=== PATIENT | female | born 1970 | race Caucasian/White ===

== ENCOUNTER 2018-03-02 13:23 | Observation (INO) | payer MEDICARE, MEDICAID, SELFPAY ==
[2018-03-02] VITALS (14 sets, daily range): BP systolic 110–160; BP diastolic 52–100; PULSE 90–123; RESP 9–32; TEMP 36.8–37.1; O2SAT 96–100; BMI 29.9
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
--- NOTE | 2018-03-02 13:56 | DI.US.S_ITS ---
PROCEDURE: US ABDOMEN COMPLETE INDICATIONS: RUQ, EVAL FOR GB PATHOLOGY TECHNIQUE: Real-time scanning was performed of the abdominal and retroperitoneal organs, with image documentation. COMPARISON: [facility], CT, KIDNEY/ URETER/BLADDER, 05/13/2016, 16:03. [facility], US, ABDOMEN COMPLETE, 04/21/2015, 17:30. FINDINGS: Liver: The liver is enlarged with steatosis. Gallbladder: Gallbladder is unremarkable. No wall thickening or visualized stones. Biliary ducts: Intrahepatic bile ducts are non-dilated. Extrahepatic bile duct caliber measures 9.3 mm. Normal is 6-7 mm or less in diameter, or 10 mm or less post-cholecystectomy. Pancreas: Visualized portions of the pancreas are sonographically normal. Spleen: Spleen is normal in size and homogeneous in echotexture. Kidneys: Kidneys are normal in size and echotexture. Right kidney measures 11.1 cm long; left kidney measures approximately 9.9 cm long. However, the left kidney is partially obscured. No hydronephrosis or nephrolithiasis. No solid masses. Aorta: Visualized aorta is normal in caliber at less than 3 cm. Iliacs: Proximal common iliac arteries are not well seen. IVC: Intrahepatic inferior vena cava is not visualized. Miscellaneous: No free abdominal fluid. IMPRESSION: 1. Hepatomegaly with steatosis. 2. Gallbladder is unremarkable. 3. Mild prominence of the common bile duct without intrahepatic biliary dilation. Attention to this region on CT is recommended. Dictated by: Jaquelin Sanchez M.D. on 03/02/2018 at 15:39 Approved by: Jaquelin Sanchez M.D. on 03/02/2018 at 15:42
[2018-03-02 14:17] LABS: Add Manual Diff / Slide Review NO; Basophils Percent Auto 0.4 % (0-2); Eosinophils Percent Auto 0.7 % (2-4); Hematocrit 43.2 % (36-46); Hemoglobin 14.9 g/dL (12.0-16.0); Lymphocytes Percent Auto 31.2 % (25-40); Mean Corpuscular HGB Conc 34.4 % (30-36); Mean Corpuscular Hemoglobin 32.5 PG (26-34); Mean Corpuscular Volume 94.4 fL (80-100); Monocytes Percent Auto 6.7 % (3-14); Neutrophils Absolute Auto 4200 /uL (3000-5900); Platelet Count 282 X10^3/uL (150-400); Red Blood Cell Count 4.58 X10^6/uL (4.0-5.2); Red Cell Distribution Width 12.6 % (11.6-14.8); White Blood Cell Count 6.8 X10^3/uL (4.5-11.0)
[2018-03-02 14:32] LABS: Alanine Aminotransferase 32 IU/L (9-52); Albumin 4.9 g/dL (3.5-5.0); Albumin Globulin Ratio 1.6 (1.0-2.8); Alkaline Phosphatase 64 U/L (38-126); Aspartate Aminotransferase 32 IU/L (14-36); BUN Creatinine Ratio 31.7 (6-22); Bilirubin Total 0.5 mg/dL (0.2-1.3); Blood Urea Nitrogen 19 mg/dL (7-17); Calcium 9.7 mg/dL (8.4-10.2); Carbon Dioxide 25 mmol/L (22-32); Chloride 102 mmol/L (98-107); Estimated Glomerular Filt Rate > 60.0 mL/min (>60); Globulin 3.1 g/dL (1.7-4.1); Glucose 99 mg/dL (70-100); HEMOLYSIS 19 (0-50); Lipase 48 U/L (23-300); Potassium 4.4 mmol/L (3.4-5.1); Sodium 143 mmol/L (137-145)
[2018-03-02] MEDS: ONDANSETRON 4 MG/2 ML INJ IV ×3 (14:32→21:08)
--- NOTE | 2018-03-02 14:41 | DI.CT.S_ITS ---
PROCEDURE: CT ABDOMEN PELVIS W CON INDICATIONS: upper ABD pain TECHNIQUE: After the administration of intravenous contrast, 5 mm thick sections acquired from the diaphragm to the symphysis. 5 mm coronal and sagittal reformats were acquired. For radiation dose reduction, the following was used: automated exposure control, adjustment of mA and/or kV according to patient size. COMPARISON: [facility], CT, ABDOMEN/PELVIS WITH CONTRAST, 09/29/2014, 19:45. FINDINGS: Image quality: Excellent. ABDOMEN: Lung bases: Lung bases are clear. Heart size is normal. Solid organs: Liver is normal in size and enhancement. Gallbladder is unremarkable. No intrahepatic biliary ductal dilatation. Extrahepatic biliary ducts measure mildly dilated, but are unchanged from prior comparison exam of 09/29/14. Pancreas enhances normally. Spleen is normal in size and enhancement. No adrenal nodules. Kidneys demonstrate normal size and enhancement, without hydronephrosis. Peritoneum and bowel: Bowel loops demonstrate normal wall thickness and caliber. No free fluid or air. Postsurgical changes suggestive of prior appendectomy. No right lower quadrant inflammatory findings to suggest acute appendicitis. Nodes and vessels: No retroperitoneal or mesenteric adenopathy by size criteria. Aorta and inferior vena cava are normal in size. There is mild calcified and noncalcified plaque of the abdominal aorta and branch vessels. Miscellaneous: No ventral hernias. PELVIS: Genitourinary: The bladder is decompressed, precluding full evaluation of the bladder wall. Miscellaneous: There is a 2.9 cm left adnexal cyst/follicle. Multiple subcentimeter hypoattenuating foci within the uterus are most consistent with uterine leiomyomas, and were partially seen on comparison exam of 09/29/14. Bones: No suspicious bony lesions. No vertebral body compression fractures. IMPRESSION: #1. No acute infectious or inflammatory findings within the imaged abdomen and pelvis. #2. Stable enlarged extrahepatic biliary ducts. Correlation with clinical laboratory findings suggested. #3. Hypoattenuating subcentimeter foci within the uterus are most consistent with leiomyomas; consider followup pelvic ultrasound if there is continued clinical concern. Dictated by: Kevin Preciado M.D. on 03/02/2018 at 15:56 Approved by: Kevin Preciado M.D. on 03/02/2018 at 16:09
[2018-03-02] MEDS: methylPREDNISolone 125 MG/2 ML VIAL 40 MG IV (14:51)
[2018-03-02] MEDS: diphenhydrAMINE 50 MG/ML VIAL IV ×2 (14:52→21:45)
[2018-03-02] MEDS: MORPHINE 4 MG/ML INJ IV ×2 (14:52→19:57)
[2018-03-02] MEDS: SODIUM CHLORIDE 0.9% 1,000 ML 1000 ML IV (14:52)
[2018-03-02 15:40] LABS: Appearance Urine UA CLOUDY; Bilirubin Urine UA NEGATIVE (NEGATIVE); Glucose Urine UA NEGATIVE (Normal); Ketones Urine UA NEGATIVE (NEGATIVE); Leukocyte Esterase Urine UA TRACE (NEGATIVE); Nitrite Urine UA Negative (Negative); Occult Blood Urine UA 3+ (Negative); Protein Urine UA 1+ (Negative); Specific Gravity Urine UA 1.025 (1.000-1.035); Urobilinogen Urine UA 0.2 E.U./dL (0.2)
[2018-03-02] MEDS: EPINEPHrine 1 MG/ML AMPUL 0.3 MG IM (15:49)
[2018-03-02] MEDS: methylPREDNISolone 125 MG/2 ML VIAL IV (15:49)
--- NOTE | 2018-03-02 15:49 | PC.NURSE ---
pt brought back from CT after having allergic reaction to Iodine contrast. Pt was premedicated per provider prior to Ct scan. Provider at bedside pt c/o itching, scratching throat, coughing.
[2018-03-02 16:13] LABS: Amorphous Sediment Urine 1+; Bacteria Urine Moderate (10-30); Culture Indicated Urine Specimen Cultured; RBC Urine 30-100/HPF (0-5/HPF); Squamous Epithelial Cell Urine 5-10 /HPF; WBC Urine 5-10/HPF (0-5/HPF)
[2018-03-02] MEDS: LORazepam 2 MG/ML SYRINGE 1 MG IV (16:49)
[2018-03-02] MEDS: HYDROCODONE/ACET 5/325 TABLET 1 TAB PO (17:53)
[2018-03-02] MEDS: SODIUM CHLORIDE 0.9% 1,000 ML 150 ML IV ×2 (18:30→23:39)
[2018-03-02] MEDS: MORPHINE 2 MG/ML INJ IV (21:09)
[2018-03-02] MEDS: LORazepam 2 MG/ML SYRINGE 0.5 MG IV (23:38)
[2018-03-03] VITALS (10 sets, daily range): BP systolic 103–150; BP diastolic 53–84; PULSE 78–125; RESP 12–20; TEMP 36.4–37.1; O2SAT 96–100
--- NOTE | 2018-03-03 | DI.MRI.S_ITS ---
PROCEDURE: MR ABDOMEN WO CON INDICATIONS: MRCP. Dilated bile duct TECHNIQUE: Coronal HASTE through the abdomen, axial 2-D FLASH in- and [id number], and breath-hold T2 FSE with fat saturation through the biliary system and pancreas. Oblique coronal and axial thin-slice HASTE, radial thick-slab HASTE centered on the extrahepatic bile ducts. COMPARISON: [facility], CT, ABDOMEN/PELVIS WITH CONTRAST, 09/29/2014, 19:45. [facility], CT, KIDNEY/ URETER/BLADDER, 05/13/2016, 16:03. [facility], CT, CT ABDOMEN PELVIS W CON, 03/02/2018, 15:17. FINDINGS: Image quality: There is motion artifact slightly limiting evaluation. Pancreas and biliary system: There is minimal central intrahepatic biliary duct dilatation as well as mild dilatation of the extrahepatic ducts redemonstrated. The common bile duct measures up to approximately 11 mm with gradual tapering distally into the ampulla. No filling defects in the common duct to suggest choledocholithiasis. Pancreatic duct is normal in caliber. No peripancreatic edema or fluid collections. Other solid organs: No focal hepatic lesions identified. Spleen is normal in size. No adrenal nodules. Both kidneys are normal in size, without hydronephrosis. Nodes and vessels: No retroperitoneal or mesenteric adenopathy by size criteria. Aorta and inferior vena cava are normal in size. Bowel and peritoneum: Visualized bowel loops are normal in caliber. No free fluid. Lung bases: No basal pleural effusions. Heart size is normal. Bones and soft tissues: No ventral hernias. Bone marrow is of normal overall signal. IMPRESSION: 1. Mild biliary ductal dilatation redemonstrated without filling defects to suggest choledochalithiasis. No definite mass lesion. Findings may reflect ampullary stenosis. Recommend correlation with laboratory values. Dictated by: Bennett Tinoco M.D. on 03/03/2018 at 15:48 Approved by: Bennett Tinoco M.D. on 03/03/2018 at 16:09
[2018-03-03] MEDS: LEVALBUTEROL 0.63 MG/3 ML NEB INH (00:57)
[2018-03-03] MEDS: MORPHINE 2 MG/ML INJ IV ×8 (01:52→22:24)
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
[2018-03-03] MEDS: SODIUM CHLORIDE 0.9% 1,000 ML 150 ML IV ×2 (05:44→12:41)
[2018-03-03] MEDS: ONDANSETRON 4 MG/2 ML INJ IV ×2 (05:49→10:23)
[2018-03-03] MEDS: LORazepam 2 MG/ML SYRINGE 0.5 MG IV (08:35)
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
--- NOTE | 2018-03-03 09:37 | PC.NURSE ---
Visitor-- Patient stated that visitor Doni Michael was okay to visit patient. Mr. Michael is the deacon of patient's rastafari.
[2018-03-03] MEDS: ALPRAZolam 0.25 MG TABLET 0.5 MG PO (14:37)
--- NOTE | 2018-03-03 14:57 | PC.NURSE ---
MRI/Day Shift Note: Patient to MRI via wheelchair at 1455. Patient saline locked and heart monitor and stickers removed from patient's chest. Patient pre-medicated with xanax per orders. Patient starting to feel better and had asked for soup which she was able to take in a keep down. Patient wanting to restart her home medications and Dr. Monaco made aware with orders received. Patient's deacon from her jew Doni Michael at her bedside today with permission from the patient. Lyric in care management spoke with patient at length this shift and has been working with/for the patient setting up post-admission needs/care. No acute distress at this time. Will continue to monitor.
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
[2018-03-03] MEDS: HYDROCODONE/ACET 10/325 TABLET 1 TAB PO (16:44)
[2018-03-03] MEDS: SCOPOLAMINE 1 PATCH TOP (16:45)
[2018-03-03] MEDS: diphenhydrAMINE 50 MG/ML VIAL IV (23:44)
[2018-03-03] MEDS: PROPAFENONE 150 MG TABLET 225 MG PO (23:52)
[2018-03-03] MEDS: NEBIVOLOL 2.5 MG TABLET 5 MG PO (23:52)
[2018-03-03] MEDS: PANTOPRAZOLE 40 MG TABLET PO (23:52)
[2018-03-03] MEDS: NEBIVOLOL 2.5 MG TABLET PO (23:52)
[2018-03-04] MEDS: MORPHINE 2 MG/ML INJ IV ×3 (00:40→05:43)
--- NOTE | 2018-03-04 04:03 | PC.NURSE ---
NOC patient c/o of 5/10 pain for most of shift. Morphine 2mg, IV, administered Q2 PRN and is able to decrease pain to a 3/10. Heating packs and warm blankets to abdomen. Midline infusing NS at 150/hr, occasional distal occlusions due to placement. Mild anxiety. Tele NSR. Denying nausea, reporting dark, concentrated urine.
[2018-03-04 05:00] VITALS: BP 108/53; PULSE 52; RESP 16; TEMP 36.2; O2SAT 97
[2018-03-04] MEDS: SODIUM CHLORIDE 0.9% 1,000 ML 150 ML IV (05:32)
[2018-03-04] MEDS: ONDANSETRON 4 MG/2 ML INJ IV (05:36)
[2018-03-04 08:00] VITALS: BP 105/64; PULSE 59; RESP 16; TEMP 36.3; O2SAT 97
[2018-03-04 08:36] VITALS: O2SAT 97
[2018-03-04] MEDS: LEVALBUTEROL 0.63 MG/3 ML NEB INH (08:55)
[2018-03-04] MEDS: OXYCODONE/ACETAMINOPHEN 5/325 TABLET 1 TAB PO (09:20)
[2018-03-04] MEDS: POTASSIUM CHLORIDE 10 MEQ TAB 20 MEQ PO (09:22)
[2018-03-04 09:55] VITALS: O2SAT 98
--- NOTE | 2018-03-04 11:15 | PT.IPTN ---
Physical Therapy Treatment Note M2 PT-IP Current Condition Start: 03/03/18 17:34 Freq: NEEDED Status: Active Protocol: Document 03/04/18 11:15 RCC (Rec: 03/04/18 12:03 RCC [email or web address]) Physical Therapy Current Condition Current Condition Evaluation Date 03/03/18 Treatment Diagnosis abdominal pain, dehydration; difficulty in walking Onset Date 03/02/18 Precautions Other Precautions falls M3 PT-IP Subjective Start: 03/03/18 17:34 Freq: NEEDED Status: Active Protocol: Document 03/04/18 11:15 RCC (Rec: 03/04/18 12:03 RCC [email or web address]) Subjective Physical Therapy Visit Type Type Treatment Note Visit Start Time 11:00 Visit Stop Time 11:15 Total Visit Minutes 15 Number of VP PUBLIC RELATIONS Visits 0 Physical Therapy Visit Comments Patient Comments pt wants to go home today, states she only has a SPC at home. [employer] members to assist her at home. M4 PT-IP Mobility and Gait Start: 03/03/18 17:34 Freq: NEEDED Status: Active Protocol: Document 03/04/18 11:15 RCC (Rec: 03/04/18 12:03 RCC [email or web address]) PT-Bed Mobility Assessment Supine to Sit Supine to Sit Independent Sit to Supine Sit to Supine Independent Scooting Scooting to Edge of Bed Independent PT-Transfer Assessment Sit to and From Stand Sit to and from Stand Standby Assistance Equipment Transfer Assistive Device Gait Belt Front Wheeled Walker Transfers Transfer Destination Bed Transfer Technique Stand Step Pivot Transfer Ability Level of Assist Contact Guard Assistance Comments Mobility Comments tremors bilaterally, LE > UE. RLE occasional foot drag due to pain and tremor. Gait Assessment Gait Gait Assistance Required: Contact Guard Assist Distance (Feet) 50 Assistive Devices Assistive Device Gait Belt Front Wheeled Walker Gait Deviations General Gait Pattern Ataxic Decreased Stride Length Decreased Feet Clearance Factors Limiting Gait Function Factors Limiting Gait Function Decreased Activity Tolerance Decreased Sensation Decreased Strength Incoordination Pain Comments Gait Comments RLE occasional dragging of the toes and foot, causing retraction of the pelvis on the R. Functional Assessments Functional Tests Timed Up and Go 44 seconds with FWW (high fall risk) M5 PT-IP Objective Assessments Start: 03/03/18 17:34 Freq: NEEDED Status: Active Protocol: Document 03/03/18 16:24 AB (Rec: 03/03/18 17:48 AB [email or web address]) Orientation Orientation/Cognition Level of Alertness Alert Orientation Name Age Birthday Month Date Year Day of Week Place Situation Safety Awareness Understands Safety Issues Gross Range of Motion Lower Extremity ROM Assessment Within Functional Limits Strength Lower Extremity Strength Assessment Within Functional Limits Sensation Assessment Sensation Gross Sensation Right LE Impaired Left LE Impaired Sensation Description Tingling Comments Sensation Comments stated that she has peripheral neuropathy M6 PT-IP Treatment Start: 03/03/18 17:34 Freq: NEEDED Status: Active Protocol: Document 03/03/18 16:24 AB (Rec: 03/03/18 17:48 AB [email or web address]) Physical Therapy Treatment Education Education Provided Safety M7 PT-IP Assessment and Plan Start: 03/03/18 17:34 Freq: NEEDED Status: Active Protocol: Document 03/04/18 11:15 RCC (Rec: 03/04/18 12:03 RCC [email or web address]) PT Summary Assessment and Plan Summary Impairments Pain Strength Balance Gait Activity Tolerance Assessment Summary Pt with significant tremors in the LEs, limiting her ability to ambulate safely without increased support. She was able to ambulate with a FWW and CGA household distances. She normally does not use an assistive device, occasionally only a cane. However, her Timed Up and Go score is 44 seconds, which indicates she is a high fall risk. Pt would likely decrease fall prevalence with the use of a FWW for extra support. Pt is motivated to return home, will need a FWW prior to d/c and assistance at home. She does not want home health services. Goals Bed Mobility Goal Independent Transfer Goal Independent Front Wheeled Walker Gait Goal Standby Assistance Front Wheel Walker Gait Distance 50 Other Goals up/down 1 step SBA Short term goals: increase bed mobility and transfers to independent and ambulation to SBA using FWW ~ 50 ft halfway goal: increas ambulation to mod I using FWW ~ 100 ft. Days to Meet Goals 3 Frequency of Treatment Frequency Of Treatment Once a Day Treatment Plan Other Recommendations and Next Treatment gait with FWW, progress Focus standing tolerance Recommendations To Nursing Amount of Assist Needed 1 Person Assist Discharge Recommendations PT Discharge Recommendations Home with Assistance Equipment Needed for Home Before needs FWW Discharge
[2018-03-04 12:00] VITALS: BP 109/57; PULSE 61; RESP 16; TEMP 36.2; O2SAT 96
[2018-03-04] MEDS: PANTOPRAZOLE 40 MG TABLET PO (12:04)
[2018-03-04] MEDS: FUROSEMIDE 20 MG TABLET PO (12:04)
[2018-03-04] MEDS: NEBIVOLOL 2.5 MG TABLET PO (12:05)
[2018-03-04] MEDS: PROPAFENONE 150 MG TABLET 225 MG PO (12:06)
[2018-03-04] MEDS: NEBIVOLOL 2.5 MG TABLET 5 MG PO (12:06)
[2018-03-04 15:49] VITALS: BP 92/49; PULSE 52; RESP 20; TEMP 36.7; O2SAT 98
[2018-03-04] MEDS: INFLUENZA VACCINE 0.5 ML SYRINGE IM (16:54)
--- NOTE | 2018-03-04 17:43 | PM.DS.1 ---
History of Present Illness Chief complaint: Multiple Complaints Narrative: Abdominal pain Patient presented to [facility] Emergency room yesterday afternoon with multiple complaints. Primarily having abdominal pain nausea and vomiting. She has had nausea involving for about the last 4 days unable it to keep in her upper normal pills down. Additionally she has had several loose stools of that with some rectal urgency. No apparent fevers or chills. Pain is in the right flank that she has had in the past. Has seemed to radiate around her mid abdomen. Additionally has been having lower abdominal pain. The nausea has persisted she has had this nausea intermittently in the past but this has been more persistent than normal. The stool changes has been intermittent also. She denies any melena or hematochezia She has history of kidney stones. Last seen by urologist couple years ago and was found to have small kidney stone none of which were of any significance. Additionally chart shows she has had several urinalyses with significant hematuria that presumably has been related to her kidney stones in the past. She also has had a couple of documented urinary tract infections based on the urine cultures most of which have been negative. She currently lives in apartment by herself. She had been living in a ?safe else?. She has an apparent restraining order against her former . Additionally has been from her children live in [place] and from the rest of her family because of the social issues that she is having with ex-. She has seen a psychiatrist in the past for traumatic head injury and posttraumatic stress syndrome. She has not seen a counselor recently. Last seen by Dr. silvia mcdaniel is been her primary care physician last November and had to stated getting reassigned position in [facility] she had to be determined. She has apparently refused to see physicians in [facility] due to the relationship with her aunt who is Dr. bledsoe on and a complex that apparently have been present in the past due to the social issues Discharge Providers Date of admission: 03/02/18 19:09 Primary care physician: Sirisha Fischer MD Consults: 03/02/18 18:57 Consult to Physician Routine Comment: Consulting Provider: Charles Monaco Reason for consultation: Admission Has provider been notified: Yes 03/02/18 21:52 Consult to Respiratory Therapy Evaluate & Treat Comment: Physician Instructions: Evaluate and treat 03/03/18 08:38 Consult to Discharge Planning Routine Comment: 03/03/18 11:47 Consult to Physical Therapy Evaluate & Treat Comment: Physician Instructions: Evaluate and Treat 03/04/18 11:59 Consult to Home Health Routine Comment: Weakness, respiratory issues, ambulation issues Reason For Exam: Set up FWW for home use at discharge Discharge provider: Charles Monaco MD Summary Discharge Diagnosis: 1. Nausea and vomiting 2. Hematuria 3. Chronic pain 4. Slightly dilated common bile duct chronic stable 5. History of reactive airway new para 6. 6. History of inappropriate sinus tachycardia stable new para 7. History of posttraumatic stress syndrome being treated 8. Abdominal pain resolved 9. Chaotic social situation Hospital Course: The patient was admitted through the ER for overnight observation and hydration. The patient difficulties with nausea and vomiting present for 4 days. She has been unable to take any of her medicines and they were multiple. During the course of the stay she was given intravenous fluids, antinausea medicines, and pain medications and during the course of the day on discharge she was essentially back to her pre-admission state with no abdominal pain other than her normal pain. Her normal pain is right lower ribcage pain as well as some midepigastric pain has been chronic and stable The vomiting resolved Her pulmonary status was unaffected by her stay are Cardiac status unchanged On admission she did have red blood cells in her urine. Urine culture was noncontributory. CT evaluation of her kidneys was normal no apparent stones although the radiologist is claim for his because of contrast The patient was referred back to her urologist who is Dr. Melendez for evaluation of the hematuria and possible kidney stones Additionally because the patient has history of ?inappropriate sinus tachycardia she was referred back to her interior wirer Dr. Ontiveros She has for prescription for Tinactin for her thrush. Status at Discharge Cognitive/behavioral status at discharge: Patient relates to me that she is back to her status quo. Seems depressed Functional status at discharge: independent ambulation Overall status at discharge: patient is back to baseline Time Spent with Patient Greater than 30 minutes Exam Vital Signs (past 8 hours): - 03/04/18 09:55 03/04/18 12:00 03/04/18 15:49 Temperature 97.2 F L 98.1 F Pulse Rate 61 52 L Respiratory Rate 16 20 Blood Pressure 109/57 L 92/49 L Pulse Oximetry 98 96 98 Fraction of Inspired Oxygen 21 Oxygen Delivery Method Room Air Oxygen Flow Rate 0 Narrative Exam Narrative: Date of discharge she was examined in her hospital bed resting quietly had no abdominal pain she appeared in no distress lungs are clear Objective Labs Result Diagrams: 03/02/18 13:33 03/02/18 13:33 Discharge Plan Discharge Plan Patient Disposition: Home Discharge comment: f/u w [employer] [facility] 3 weeks mammo/us Mar 25@12:40 Discharge Med Rec/Prescriptions Prescriptions: New oxycodone-acetaminophen 5-325 mg Tablet 1 tab PO Q6H PRN (Reason: pain) Qty: 0 RF: 0 Dextroamphetamine-Amphetamine [Dextroamphetamine-Amphetamine] 30 mg PO BID Qty: 0 RF: 0 Continue pilocarpine HCl 5 mg tablet 10 mg PO TID Qty: 540 RF: 1 scopolamine base [Transderm-Scop] 1 mg over 3 days patch 3 day 1 patch Transdermal Q72H Qty: 30 RF: 1 omeprazole 40 mg capsule,delayed release(DR/EC) 40 mg PO BID Qty: 180 RF: 0 furosemide [Lasix] 20 mg tablet 20 mg PO DAILY Qty: 90 RF: 0 propafenone 225 mg capsule,extended release 12 hr 225 mg PO BID Qty: 180 RF: 0 nebivolol [Bystolic] 2.5 mg tablet 2.5 mg PO BID Qty: 180 RF: 3 nebivolol [Bystolic] 5 mg tablet 5 mg PO BID Qty: 180 RF: 3 albuterol sulfate 90 mcg/actuation HFA aerosol inhaler 2 puff INHALATION Q6H PRN (Reason: shortness of breath) Qty: 6.7 RF: 3 potassium chloride 10 mEq capsule, extended release 20 meq PO QDAY Qty: 180 RF: 5 hydrocortisone 2.5 % cream 1 applictn TOP BID PRN (Reason: skin irritation) Qty: 90 RF: 2 Disabled [address]ing Permit See Label Instructions [id number] .COMPLEX Qty: 1 RF: 0 dextroamphetamine-amphetamine 30 mg capsule,extended release 24hr 30 mg PO BID Qty: 60 RF: 0 hydrocodone-acetaminophen [[place]] 7.5-325 mg tablet 1 tab PO BID PRN (Reason: pain) Qty: 60 RF: 0 albuterol sulfate 2.5 MG/3 ML solution for nebulization 3 ml INH Q4HP PRN (Reason: Shortness Of Breath) RF: 0 nystatin 100,000 unit/mL suspension 10 ml PO TID PRN (Reason: as directed) RF: 0 Discontinued ondansetron HCl [Zofran] 4 mg tablet 4 mg PO Q8H PRN (Reason: nausea and vomiting) Qty: 30 RF: 3 No Action nystatin 100,000 unit/mL suspension 1,000,000 unit PO TID PRN (Reason: as directed) Qty: 60 RF: 5 ondansetron 4 mg tablet,disintegrating 4 mg PO Q8H PRN (Reason: nausea and vomiting) Qty: 90 RF: 3 ipratropium bromide 0.02 % solution 2.5 ml INHALATION Q6-8H PRN (Reason: shortness of breath or wheezing) Qty: 150 RF: 3 Follow up/Referrals: Sirisha Fischer MD [Primary Care Provider] - 1 Month (appt; 03/25 @ 12:40 @ [facility] for [facility]-do not wear deoderant or perfume appt:04/01 @ 9:45 check in for a 10:00 appointment with stephen rosado @ [facility] [phone] ) Provider Discharge Instructions Diet: Diet as Tolerated Visit Report/Discharge Packet Visit Report Forms: Stroke Signs & Symptoms Discharge Data Primary Care Provider: Sirisha Fischer Attending Provider: Charles Monaco Admit Date/Time: 03/02/18 19:09 Discharges patient from system. Discharge Date/Time: 03/04/18 17:14 Quality VTE Deep Vein Thrombosis/Pulmonary Embolism Present on Admission: No
== END 2018-03-04 17:14 | disposition home or self-care (01) ==
LOC: ED 18:56 → AC 19:10
PROVIDERS: Admitting Provider Family Medicine; Emergency Provider Emergency Medicine; Family Provider Family Medicine; PCP Family Medicine; Visit Provider Family Medicine
DX: R07.9 Chest pain, unspecified (principal); Z23 Encounter for immunization; R11.2 Nausea with vomiting, unspecified; R31.9 Hematuria, unspecified; G89.29 Other chronic pain; F43.10 Post-traumatic stress disorder, unspecified; W19.XXXA Unspecified fall, initial encounter; I49.9 Cardiac arrhythmia, unspecified
CPT/HCPCS: 36591; 74177; 74181; 76700; 80053; 81001; 83690; 85025; 87086; 90471; 90656; 93005; 93041; 94640; 94760; 96361; 96372; 96374; 96375; 96376; 97116; 97162; 99285; G0378; J0171; J1200; J2060; J2270; J2405; J2920; J2930; J7614; Q2038; Q9967

== ENCOUNTER → 2018-03-25 12:41 | Outpatient (CLI) | payer MEDICARE, MEDICAID, SELFPAY ==
[2018-03-02 20:55] VITALS: BMI 29.9
--- NOTE | 2018-03-25 12:44 | DI.US.S_ITS ---
LIMITED ULTRASOUND OF LEFT BREAST: 03/25/2018 CLINICAL: Palpable left breast lump. Comparison is made to exams dated: 03/25/2018 mammogram, 02/21/2016 ultrasound, 02/21/2016 mammogram, 06/17/2014 mammogram, and 06/17/2014 [facility]. Real-time ultrasound of the left breast 6 o'clock, and retroareolar regions was performed on the area of interest. IMPRESSION: NEGATIVE There is no sonographic evidence of malignancy. There is no abnormality seen in the left breast to correspond with the discharge from the nipple in the sub-areolar depth, however, clinical followup is recommended. There is no abnormality seen in the left breast to correspond with the palpable abnormality at 6 o'clock, however, clinical followup is recommended. A 1 year screening mammogram is recommended. This exam was interpreted at Station ID: [id number]. Electronically Signed By: Bennett ruiz/quang:03/25/2018 16:53:17 letter sent: Clinical Evaluation Ultrasound BI-RADS: 1 Negative
--- NOTE | 2018-03-25 12:44 | DI.MG.S_ITS ---
BILATERAL DIGITAL DIAGNOSTIC MAMMOGRAM 3D/2D: 03/25/2018 CLINICAL: Left breast mass. Comparison is made to exams dated: 02/21/2016 mammogram, 02/03/2014 mammogram, and 06/17/2014 mammogram - [facility]. The tissue of both breasts is heterogeneously dense. This may lower the sensitivity of mammography. No significant masses, calcifications, or other findings are seen in either breast. IMPRESSION: INCOMPLETE: NEEDS ADDITIONAL IMAGING EVALUATION There is no abnormality seen in the left breast to correspond with the palpable abnormality in the lower inner quadrant, however, ultrasound is recommended. There is no abnormality seen in the left breast to correspond with the discharge from the nipple in the sub-areolar depth, however, ultrasound is recommended. This exam was interpreted at Station ID: [id number]. NOTE: For mammograms, a report in lay terms will be sent to the patient. Approximately 15% of breast malignancies will not be visualized mammographically. In the management of a palpable breast mass, a negative mammogram must not discourage biopsy of a clinically suspicious lesion. Electronically Signed By: Bennett ruiz/quang:03/25/2018 14:08:50 letter sent: Need Ultrasound ACR BI-RADS Category 0: Incomplete [id number]
== END ==
PROVIDERS: Visit Provider Family Medicine
DX: N63.20 Unspecified lump in the left breast, unspecified quadrant (principal); R92.8 Other abnormal and inconclusive findings on diagnostic imaging of breast
CPT/HCPCS: 76642; 77066; G0279

== ENCOUNTER → 2018-09-07 15:55 | Outpatient (CLI) | payer MEDICARE, MEDICAID, SELFPAY ==
[2018-03-02 20:55] VITALS: BMI 29.9
--- NOTE | 2018-09-07 15:58 | DI.US.S_ITS ---
PROCEDURE: US ABDOMEN LIMITED INDICATIONS: RUQ pain TECHNIQUE: Real-time focused scanning was performed of the abdomen, with image documentation. COMPARISON: [facility], MR, MR ABDOMEN WO CON, 03/03/2018, 14:58. FINDINGS: Liver is unremarkable. No focal hepatic lesion identified. The gallbladder is also within normal limits. No sonographic Lacy sign. No intrahepatic bile duct dilatation is seen. The distal common bile duct measures 13 mm (previously 11 mm on the prior MRI dated 03/03/18). No specific etiology is sonographically identified. IMPRESSION: Prominence of the distal common bile duct (as before). No sonographic visualized etiology. Please correlate with LFTs. Normal appearance of the gallbladder. Dictated by: Dann Kasper M.D. on 09/07/2018 at 17:29 Approved by: Dann Kasper M.D. on 09/07/2018 at 17:31
== END ==
PROVIDERS: PCP Student in an Organized Health Care Education/Training Program; Visit Provider Student in an Organized Health Care Education/Training Program
DX: R10.11 Right upper quadrant pain (principal)
CPT/HCPCS: 76705

== ENCOUNTER → 2018-09-14 07:53 | Outpatient (CLI) | payer MEDICARE, MEDICAID, SELFPAY ==
[2018-03-02 20:55] VITALS: BMI 29.9
--- NOTE | 2018-09-14 07:55 | DI.NM.S_ITS ---
PROCEDURE: HI HIDA WITH CCK PHARMACEUTICAL: 5.3 mCi Tc-99m mebrofenin IV; 1.7 mcg CCK IV. INDICATIONS: RUQ abdominal pain TECHNIQUE: Following intravenous administration of Tc-99m mebrofenin, sequential anterior abdominal images were obtained. To evaluate the contractile response of the gallbladder in response to Cholecystokinin (CCK), sincalide (0.02 ?g/kg) was administered by slow intravenous infusion approximately 60 minutes after the administration of the radiopharmaceutical. Sequential imaging was continued for 30 minutes after the start of CCK infusion. Gallbladder ejection fraction was calculated. COMPARISON: [facility], , MR ABDOMEN WO CON, 03/03/2018, 14:58. [facility], , US ABDOMEN LIMITED, 09/07/2018, 16:37. [place], [place], HEPATOBILIARY SCAN WITH CCK, 02/15/2014, 8:27. FINDINGS: Biliary scan: There is normal tracer uptake and excretion by the liver. There is normal visualization of the intrahepatic ducts, common bile duct, and gallbladder. There is normal tracer transit into the duodenum. CCK stimulation: There is normal contractile response of the gallbladder to CCK infusion. The calculated gallbladder ejection fraction is 44%; normal values are above 35%. It has been shown that any patient abdominal pain after CCK administration is related to the rate of CCK injection, rather than to any underlying gallbladder disease (Clinical Nuclear Medicine 2012; 37: 63-70. Journal of Nuclear Medicine 2014; 55: 1-9). IMPRESSION: Normal hepatobiliary scan, normal gallbladder ejection fraction of 44% (normal values are above 35%). Source of current right upper quadrant pain is not seen. Dictated by: Hernesto Goss M.D. on 09/14/2018 at 10:48 Approved by: Hernesto Goss M.D. on 09/14/2018 at 10:51
== END ==
PROVIDERS: Family Provider Internal Medicine Cardiovascular Disease; PCP Student in an Organized Health Care Education/Training Program; Visit Provider Student in an Organized Health Care Education/Training Program
DX: R10.11 Right upper quadrant pain (principal)
CPT/HCPCS: 78227; A9537; J2805

== ENCOUNTER 2018-11-03 18:50 | Emergency (ER) | payer MEDICARE, MEDICAID, SELFPAY ==
[2018-03-02 20:55] VITALS: BMI 29.9
[2018-11-03 18:50] VITALS: BP 156/102; PULSE 111; RESP 14; TEMP 36.9; O2SAT 97
--- NOTE | 2018-11-03 18:55 | DI.RAD.S_ITS ---
PROCEDURE: XR CHEST 1V INDICATIONS: chest pain TECHNIQUE: One view of the chest was acquired. COMPARISON: [facility], , CHEST 2 VIEW, 09/03/2017, 14:32. FINDINGS: Surgical changes and devices: None. Lungs and pleura: Lungs are clear. No pleural effusions or pneumothorax. Mediastinum: Mediastinal contours appear normal. Heart size is normal. Bones and chest wall: No suspicious bony lesions. Overlying soft tissues appear unremarkable. IMPRESSION: Stable examination of the chest without acute cardiopulmonary abnormalities. No focal consolidation. Dictated by: Juan Vicente M.D. on 11/03/2018 at 20:19 Approved by: Juan Vicente M.D. on 11/03/2018 at 20:19
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
[2018-11-03] MEDS: SODIUM CHLORIDE 0.9% 1,000 ML 150 ML IV (19:24)
[2018-11-03] MEDS: PANTOPRAZOLE 40 MG VIAL IV (19:24)
[2018-11-03 19:25] LABS: Add Manual Diff / Slide Review NO; Basophils Absolute Auto 0 /uL (0-100); Basophils Percent Auto 0.4 % (0-2); Eosinophils Absolute Auto 100 /uL (0-450); Eosinophils Percent Auto 0.9 % (2-4); Hematocrit 39.4 % (36-46); Hemoglobin 13.6 g/dL (12.0-16.0); Lymphocytes Absolute Auto 2400 /uL (1100-4500); Lymphocytes Percent Auto 30.8 % (25-40); Mean Corpuscular HGB Conc 34.4 % (30-36); Mean Corpuscular Hemoglobin 31.9 PG (26-34); Mean Corpuscular Volume 92.8 fL (80-100); Monocytes Absolute Auto 600 /uL (0-900); Neutrophils Absolute Auto 4700 /uL (1500-7000); Neutrophils Percent Auto 59.9 % (50-75); Platelet Count 251 X10^3/uL (150-400); Red Blood Cell Count 4.25 X10^6/uL (4.0-5.2); Red Cell Distribution Width 13.2 % (11.6-14.8); White Blood Cell Count 7.9 X10^3/uL (4.5-11.0)
[2018-11-03 19:37] LABS: INR 0.9 (0.9-1.3); Prothrombin Time 10.5 SECONDS (10.1-12.7)
[2018-11-03 19:39] LABS: PTT Partial Thromboplastin Tim 28 SECONDS (26.4-36.2)
[2018-11-03 19:41] LABS: Alanine Aminotransferase 36 IU/L (9-52); Albumin 4.5 g/dL (3.5-5.0); Albumin Globulin Ratio 1.5 (1.0-2.8); Alkaline Phosphatase 79 U/L (38-126); Aspartate Aminotransferase 23 IU/L (14-36); BUN Creatinine Ratio 27.1 (6-22); Bilirubin Total 0.3 mg/dL (0.2-1.3); Blood Urea Nitrogen 19 mg/dL (7-17); Calcium 9.3 mg/dL (8.4-10.2); Carbon Dioxide 24 mmol/L (22-32); Chloride 100 mmol/L (98-107); Creatine Kinase 32 U/L (30-135); Estimated Glomerular Filt Rate > 60.0 mL/min (>60); Glucose 99 mg/dL (70-100); HEMOLYSIS 21 (0-50); Lipase 45 U/L (23-300); Sodium 137 mmol/L (137-145); Total Protein 7.5 g/dL (6.3-8.2)
--- NOTE | 2018-11-03 19:51 | DI.US.S_ITS ---
PROCEDURE: US ABDOMEN LIMITED INDICATIONS: RIGHT UPPER QUADRANT PAIN TECHNIQUE: Real-time focused scanning was performed of the abdomen, with image documentation. COMPARISON: [facility], , US ABDOMEN LIMITED, 09/07/2018, 16:37. FINDINGS: The liver is normal in size and echotexture without focal intrahepatic abnormalities. Gallbladder is normal sonographic appearance without gallstones, wall thickening, pericholecystic fluid, or abnormal sonographic Lacy's. Persistent dilatation of the common bile duct measuring up to 13 mm on today's study. No choledocholithiasis. No pancreatic head mass lesions. No pancreatic ductal dilatation. Visualized portions of the pancreas appear unremarkable. No intrahepatic biliary ductal dilatation. No free fluid. IMPRESSION: 1. Normal sonographic evaluation of the gallbladder. 2. Persistent dilatation of the common bile duct which is unchanged. No sonographic abnormalities identified as etiology for this finding. Recommend correlation with liver function tests. Dictated by: Juan Vicente M.D. on 11/03/2018 at 22:28 Approved by: Juan Vicente M.D. on 11/03/2018 at 22:32
[2018-11-03 19:53] VITALS: BP 116/90; PULSE 99; RESP 19; O2SAT 95
[2018-11-03 19:53] LABS: Troponin I < 0.012 ng/mL (0.01-0.034)
[2018-11-03 20:01] VITALS: BP 120/75; PULSE 83; RESP 10; O2SAT 95
[2018-11-03 20:14] LABS: Appearance Urine UA SL CLOUDY; Bilirubin Urine UA NEGATIVE (NEGATIVE); Color Urine UA YELLOW; Glucose Urine UA NEGATIVE (Negative); Ketones Urine UA NEGATIVE (NEGATIVE); Leukocyte Esterase Urine UA NEGATIVE (NEGATIVE); Nitrite Urine UA NEGATIVE (Negative); Occult Blood Urine UA TRACE-LYSED (Negative); Protein Urine UA NEGATIVE (Negative); Specific Gravity Urine UA 1.025 (1.000-1.035); Urobilinogen Urine UA 0.2 E.U./dL (0.2); pH Urine UA 5.5 (4.5-8.0)
[2018-11-03 20:33] LABS: Bacteria Urine Few (2-10); Culture Indicated Urine Cult Not Indicated; RBC Urine 1-5/HPF (0-5/HPF); Squamous Epithelial Cell Urine 5-10 /HPF (0-5/HPF); WBC Urine 1-5/HPF (0-5/HPF)
[2018-11-03 21:16] VITALS: BP 131/80; PULSE 77; RESP 10; O2SAT 100
--- NOTE | 2018-11-03 21:20 | PC.NURSE ---
PT states nausea has returned, provider notified, IV zofran ordered and 4mg IV zofran administered to pt.
[2018-11-03 21:30] VITALS: BP 109/52; PULSE 73; RESP 16; O2SAT 98
[2018-11-03 22:00] VITALS: BP 117/65; PULSE 77; RESP 18; O2SAT 100
[2018-11-03 22:38] LABS: Troponin I < 0.012 ng/mL (0.01-0.034)
== END 2018-11-03 23:07 | disposition home or self-care (01) ==
PROVIDERS: Emergency Provider Emergency Medicine; Family Provider Internal Medicine Cardiovascular Disease; PCP Student in an Organized Health Care Education/Training Program
DX: R07.89 Other chest pain (principal)
CPT/HCPCS: 36415; 71045; 76705; 80053; 81001; 82550; 83690; 84484; 85025; 85610; 85730; 93005; 96361; 96374; 99283; 99284; 99285; C9113

== ENCOUNTER → 2019-01-01 11:50 | Outpatient (CLI) | payer MEDICARE, MEDICAID, SELFPAY ==
[2018-03-02 20:55] VITALS: BMI 29.9
[2019-01-01 12:02] LABS: Bacteria Urine None Seen; WBC Urine None Seen (0-5/HPF)
[2019-01-01 12:10] LABS: Appearance Urine UA SL CLOUDY; Bilirubin Urine UA NEGATIVE (NEGATIVE); Color Urine UA YELLOW; Glucose Urine UA NEGATIVE (Negative); Ketones Urine UA NEGATIVE (NEGATIVE); Leukocyte Esterase Urine UA NEGATIVE (NEGATIVE); Nitrite Urine UA NEGATIVE (Negative); Occult Blood Urine UA 3+ (Negative); Protein Urine UA NEGATIVE (Negative)
[2019-01-01 12:30] LABS: Mucus Urine 2+ (Negative); RBC Urine 30-100/HPF (0-5/HPF); Squamous Epithelial Cell Urine 5-10 /HPF (0-5/HPF)
[2019-01-01 12:31] LABS: Culture Indicated Urine Cult Not Indicated
== END ==
PROVIDERS: PCP Student in an Organized Health Care Education/Training Program; Visit Provider Student in an Organized Health Care Education/Training Program
DX: R30.0 Dysuria (principal)
CPT/HCPCS: 81001

== ENCOUNTER 2019-01-16 05:41 | Emergency (ER) | payer MEDICARE, MEDICAID, SELFPAY ==
[2018-03-02 20:55] VITALS: BMI 29.9
[2019-01-16 05:44] VITALS: BP 153/90; PULSE 112; RESP 22; TEMP 37.1; O2SAT 97; BMI 28.1
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
[2019-01-16] MEDS: ERYTHROMYCIN OPHTH 1 GM OINT 1 APPLIC EYE-LEFT (06:06)
== END 2019-01-16 06:16 | disposition home or self-care (01) ==
PROVIDERS: Emergency Provider Emergency Medicine; PCP Student in an Organized Health Care Education/Training Program
DX: H10.32 Unspecified acute conjunctivitis, left eye (principal)
CPT/HCPCS: 99283

== ENCOUNTER → 2019-08-24 09:06 | Outpatient (CLI) | payer MEDICARE, MEDICAID, SELFPAY ==
[2019-08-05 11:01] VITALS: BMI 29.9
[2019-08-24 10:04] LABS: Hemoglobin 14.8 g/dL (12.0-16.0); Mean Corpuscular HGB Conc 34.4 % (30-36); Mean Corpuscular Hemoglobin 32.6 PG (26-34); Mean Corpuscular Volume 94.7 fL (80-100); Platelet Count 369 X10^3/uL (150-400); RBC Morphology Normal Morphology; Red Blood Cell Count 4.54 X10^6/uL (4.0-5.2); Red Cell Distribution Width 13.3 % (11.6-14.8); Total Cells Counted 100; White Blood Cell Count 9.6 X10^3/uL (4.5-11.0)
[2019-08-24 11:48] LABS: HIV 1 & 2 Ab/Ag 4th Gen Combo NEGATIVE (NEGATIVE)
[2019-08-24 15:08] LABS: Bacteria Urine None Seen
[2019-08-24 15:49] LABS: Appearance Urine UA CLOUDY; Bilirubin Urine UA NEGATIVE (NEGATIVE); Color Urine UA YELLOW; Glucose Urine UA NEGATIVE (Negative); Ketones Urine UA TRACE (NEGATIVE); Leukocyte Esterase Urine UA NEGATIVE (NEGATIVE); Nitrite Urine UA NEGATIVE (Negative); Occult Blood Urine UA NEGATIVE (Negative); Protein Urine UA 1+ (Negative); Specific Gravity Urine UA >=1.030 (1.000-1.035); Urobilinogen Urine UA 0.2 E.U./dL (0.2)
[2019-08-24 15:50] LABS: Amorphous Sediment Urine 3+; Culture Indicated Urine Cult Not Indicated; RBC Urine 0-1/HPF (0-5/HPF); Squamous Epithelial Cell Urine 1-5 /HPF (0-5/HPF); WBC Urine 0-1/HPF (0-5/HPF)
== END ==
PROVIDERS: PCP Student in an Organized Health Care Education/Training Program; Referring Provider Student in an Organized Health Care Education/Training Program; Visit Provider Student in an Organized Health Care Education/Training Program
DX: B37.0 Candidal stomatitis (principal); R10.2 Pelvic and perineal pain; R30.9 Painful micturition, unspecified
CPT/HCPCS: 36415; 81001; 85025; 87389

== ENCOUNTER → 2019-09-24 08:56 | Outpatient (CLI) | payer MEDICARE, MEDICAID, SELFPAY ==
[2019-08-05 11:01] VITALS: BMI 29.9
--- NOTE | 2019-09-24 09:03 | DI.RAD.S_ITS ---
PROCEDURE: XR WRIST RT 2V INDICATIONS: Fall, wrist injury TECHNIQUE: 4 views of the wrist were acquired. COMPARISON: None. FINDINGS: Bones: No fractures or dislocations. No suspicious bony lesions. Scaphoid view: No navicular fractures are seen. Soft tissues: No suspicious soft tissue calcifications. IMPRESSION: No displaced fractures are seen. If there is snuffbox tenderness (or other clinical suspicion for a fracture not seen on these images) then a repeat examination would be recommended in 10 to 14 days, following splinting. Dictated by: Dhruv Kay M.D. on 09/24/2019 at 8:45 Approved by: Dhruv Kay M.D. on 09/24/2019 at 8:45
== END ==
PROVIDERS: PCP Student in an Organized Health Care Education/Training Program; Referring Provider Student in an Organized Health Care Education/Training Program; Visit Provider Student in an Organized Health Care Education/Training Program
DX: S69.91XA Unspecified injury of right wrist, hand and finger(s), initial encounter (principal); W19.XXXA Unspecified fall, initial encounter
CPT/HCPCS: 73110

== ENCOUNTER → 2019-10-08 13:48 | Outpatient (CLI) | payer MEDICARE, MEDICAID, SELFPAY ==
[2019-08-05 11:01] VITALS: BMI 29.9
--- NOTE | 2019-10-08 13:50 | DI.RAD.S_ITS ---
PROCEDURE: XR WRIST RT MIN 3V INDICATIONS: Fall, ongoing pain for 2 weeks. Compare with 09/23 image. TECHNIQUE: 4 views of the wrist were acquired. COMPARISON: [facility], CR, XR WRIST RT 2V, 09/24/2019, 8:57. FINDINGS: Bones: No fractures or dislocations. No suspicious bony lesions. Soft tissues: No suspicious soft tissue calcifications. IMPRESSION: No fracture. If the patient's pain or other symptoms persist, consider further evaluation with MRI Dictated by: Dann Kasper M.D. on 10/08/2019 at 16:03 Approved by: Dann Kasper M.D. on 10/08/2019 at 16:04
== END ==
PROVIDERS: PCP Student in an Organized Health Care Education/Training Program; Referring Provider Student in an Organized Health Care Education/Training Program; Visit Provider Student in an Organized Health Care Education/Training Program
DX: M25.531 Pain in right wrist (principal)
CPT/HCPCS: 73110

== ENCOUNTER → 2020-01-31 12:11 | Outpatient (CLI) | payer MEDICARE, MEDICAID, SELFPAY ==
[2019-08-05 11:01] VITALS: BMI 29.9
--- NOTE | 2020-01-31 12:13 | DI.RAD.S_ITS ---
PROCEDURE: XR RIBS LT MIN 3V W CXR1V INDICATIONS: anterior rib contusion, r/o fx TECHNIQUE: 2 views of the left ribs were acquired, along with a single view chest. COMPARISON: None. FINDINGS: Surgical changes and devices: None. Bones and chest wall: No fractures or dislocations. No suspicious bony lesions. Overlying soft tissues appear unremarkable. Lungs and pleura: No pleural effusions or pneumothorax. Lungs appear clear. Mediastinum: Mediastinal contours appear normal. Heart size is normal. IMPRESSION: No rib fracture radiographically identified. Dictated by: Dann Kasper M.D. on 01/31/2020 at 12:51 Approved by: Dann Kasper M.D. on 01/31/2020 at 12:53
== END ==
PROVIDERS: PCP Student in an Organized Health Care Education/Training Program; Referring Provider Physician Assistant; Visit Provider Physician Assistant
DX: R07.81 Pleurodynia (principal)
CPT/HCPCS: 71101

== ENCOUNTER → 2020-08-23 08:55 | Outpatient (CLI) | payer MEDICARE, MEDICAID, SELFPAY ==
[2019-08-05 11:01] VITALS: BMI 29.9
--- NOTE | 2020-08-23 08:57 | DI.US.S_ITS ---
LIMITED ULTRASOUND OF LEFT BREAST AND AXILLA: 08/23/2020 CLINICAL: Palpable left breast lump. Comparison is made to exams dated: 08/23/2020 mammogram, 03/25/2018 ultrasound, 03/25/2018 mammogram, 02/21/2016 ultrasound, 02/21/2016 ultrasound, and 02/21/2016 mammogram - [facility]. Real-time ultrasound of the left breast 6 o'clock, and axilla regions was performed. Pascual scale images of the real-time examination were reviewed. No significant abnormalities were seen sonographically in the left breast. IMPRESSION: NEGATIVE There is no sonographic evidence of malignancy. There is no abnormality seen in the left breast to correspond with the area of clinical concern and palpable abnormality indicated by triangular marker at 6 o'clock which likely represent normal fibroglandular tissue, however, recommend clinical follow up for persistent or worsening symptoms, or development of any clinically suspicious findings. A 1 year screening mammogram is recommended. Findings and recommendations were conveyed to the patient during today's evaluation. This exam was interpreted at Station ID: [id number]. Electronically Signed By: Juan Vicente M.D. aty/:08/23/2020 12:47:02 letter sent: Clinical Evaluation Ultrasound BI-RADS: 1 Negative
--- NOTE | 2020-08-23 08:57 | DI.MG.S_ITS ---
BILATERAL DIGITAL DIAGNOSTIC MAMMOGRAM 3D/2D: 08/23/2020 CLINICAL: Left breast lump. Comparison is made to exams dated: 03/25/2018 mammogram, 02/21/2016 mammogram, and 06/17/2014 mammogram - [facility]. The tissue of both breasts is heterogeneously dense. This may lower the sensitivity of mammography. No significant masses, calcifications, or other findings are seen in either breast. IMPRESSION: INCOMPLETE: NEEDS ADDITIONAL IMAGING EVALUATION There is no abnormality seen in the left breast to correspond with the area of clinical concern and palpable abnormality indicated by triangular marker in the middle depth in the lower inner quadrant, however, an ultrasound is recommended for further evaluation and is scheduled to immediately follow this examination. This exam was interpreted at Station ID: [id number]. NOTE: For mammograms, a report in lay terms will be sent to the patient. Approximately 15% of breast malignancies will not be visualized mammographically. In the management of a palpable breast mass, a negative mammogram must not discourage biopsy of a clinically suspicious lesion. Electronically Signed By: Juan Vicente M.D. aty/:08/23/2020 10:44:05 ACR BI-RADS Category 0: Incomplete [id number]
== END ==
PROVIDERS: PCP Student in an Organized Health Care Education/Training Program; Referring Provider Student in an Organized Health Care Education/Training Program; Visit Provider Student in an Organized Health Care Education/Training Program
DX: N63.20 Unspecified lump in the left breast, unspecified quadrant (principal); R92.8 Other abnormal and inconclusive findings on diagnostic imaging of breast
CPT/HCPCS: 76642; 77066; G0279

== ENCOUNTER → 2020-11-23 10:08 | Outpatient (CLI) | payer MEDICARE, MEDICAID, SELFPAY ==
[2019-08-05 11:01] VITALS: BMI 29.9
[2020-11-23 10:37] LABS: Add Manual Diff / Slide Review NO; Basophils Absolute Auto 0 /uL (0-100); Basophils Percent Auto 0.5 % (0-2); Eosinophils Absolute Auto 0 /uL (0-450); Eosinophils Percent Auto 0.7 % (2-4); Hematocrit 42.8 % (36-46); Hemoglobin 14.4 g/dL (12.0-16.0); Lymphocytes Absolute Auto 2300 /uL (1100-4500); Lymphocytes Percent Auto 33.6 % (25-40); Mean Corpuscular HGB Conc 33.6 % (30-36); Mean Corpuscular Hemoglobin 31.5 PG (26-34); Monocytes Absolute Auto 500 /uL (0-900); Monocytes Percent Auto 7.1 % (3-14); Neutrophils Absolute Auto 4000 /uL (1500-7000); Neutrophils Percent Auto 58.1 % (50-75); Platelet Count 325 X10^3/uL (150-400); Red Blood Cell Count 4.56 X10^6/uL (4.0-5.2); Red Cell Distribution Width 13.2 % (11.6-14.8); White Blood Cell Count 6.9 X10^3/uL (4.5-11.0)
[2020-11-23 10:52] LABS: BUN Creatinine Ratio 24.7 (6-22); Blood Urea Nitrogen 22 mg/dL (7-17); Calcium 10.6 mg/dL (8.4-10.2); Carbon Dioxide 23 mmol/L (22-32); Chloride 102 mmol/L (98-107); Estimated Glomerular Filt Rate > 60.0 mL/min (>60); Glucose 127 mg/dL (70-100); HEMOLYSIS < 15 (0-50); Potassium 4.2 mmol/L (3.4-5.1); Sodium 139 mmol/L (137-145)
[2020-11-23 11:22] LABS: Thyroid Stimulating Hormone 3.13 uIU/mL (0.47-4.68)
== END ==
PROVIDERS: PCP Student in an Organized Health Care Education/Training Program; Referring Provider Internal Medicine Cardiovascular Disease; Visit Provider Internal Medicine Cardiovascular Disease
DX: R00.0 Tachycardia, unspecified (principal); R53.83 Other fatigue
CPT/HCPCS: 36415; 80048; 84443; 85025

== ENCOUNTER → 2021-07-26 11:13 | Outpatient (CLI) | payer MEDICARE, MEDICAID, SELFPAY ==
[2019-08-05 11:01] VITALS: BMI 29.9
[2021-07-26 12:10] LABS: COVID19 -Nasal RAPID POSITIVE (Negative)
== END ==
PROVIDERS: PCP Student in an Organized Health Care Education/Training Program; Visit Provider Nurse Practitioner Family
DX: U07.1 COVID-19 (principal); Z20.822 Contact with and (suspected) exposure to COVID-19
CPT/HCPCS: 87635

== ENCOUNTER → 2021-09-21 12:10 | Outpatient (CLI) | payer MEDICARE, MEDICAID, SELFPAY ==
[2019-08-05 11:01] VITALS: BMI 29.9
[2021-09-21 13:09] LABS: Alanine Aminotransferase 86 IU/L (<35); Albumin 5.6 g/dL (3.5-5.0); Albumin Globulin Ratio 1.5 (1.0-2.8); Alkaline Phosphatase 97 U/L (38-126); Aspartate Aminotransferase 61 IU/L (14-36); BUN Creatinine Ratio 17.1 (6-22); Bilirubin Total 0.8 mg/dL (0.2-1.3); Blood Urea Nitrogen 18 mg/dL (7-17); Calcium 10.1 mg/dL (8.4-10.2); Carbon Dioxide 23 mmol/L (22-32); Chloride 101 mmol/L (98-107); Estimated Glomerular Filt Rate > 60 mL/min (>60); Globulin 3.8 g/dL (1.7-4.1); Glucose 124 mg/dL (70-100); HEMOLYSIS < 15 (0-50); Potassium 3.9 mmol/L (3.4-5.1); Sodium 140 mmol/L (137-145); Total Protein 9.4 g/dL (6.3-8.2)
== END ==
PROVIDERS: PCP Student in an Organized Health Care Education/Training Program; Referring Provider Internal Medicine Cardiovascular Disease; Visit Provider Internal Medicine Cardiovascular Disease
DX: R53.83 Other fatigue (principal); R00.0 Tachycardia, unspecified
CPT/HCPCS: 36415; 80053

== ENCOUNTER → 2023-07-08 16:06 | Outpatient (CLI) | payer MEDICARE, MEDICAID, SELFPAY ==
[2019-08-05 11:01] VITALS: BMI 29.9
--- NOTE | 2023-07-08 16:09 | DI.RAD.S_ITS ---
PROCEDURE: XR HIP W PEL IF DONE LT 2V INDICATIONS: Pain after fall to L)hip and pelvis area TECHNIQUE: AP pelvis with lateral view(s) of the left hip(s). COMPARISON: [facility], , HIP 2V RIGHT, 02/20/2011, 22:45. FINDINGS: Bones: No fractures or dislocations. Pelvic ring appears intact. No suspicious bony lesions. Mild degenerative changes of the left hip. Minimal joint space narrowing compared to the right hip. Soft tissues: The visualized bowel gas pattern is normal. No suspicious soft tissue calcifications. Surgical clips project over the right lower quadrant. IMPRESSION: Left hip and pelvis without acute fracture or dislocation. Mild degenerative changes of the left hip. If there are persistent symptoms or clinical suspicion for pathology, then repeat radiographs or advanced imaging (CT or MRI) may be considered for further evaluation. Dictated by: Juan Vicente M.D. on 07/08/2023 at 18:20 Approved by: Juan Vicente M.D. on 07/08/2023 at 18:21
== END ==
PROVIDERS: PCP Student in an Organized Health Care Education/Training Program; Referring Provider Internal Medicine; Visit Provider Internal Medicine
DX: M25.552 Pain in left hip (principal); R10.2 Pelvic and perineal pain
CPT/HCPCS: 73502

== ENCOUNTER → 2023-10-21 14:27 | Outpatient (CLI) | payer MEDICARE, MEDICAID, SELFPAY ==
[2019-08-05 11:01] VITALS: BMI 29.9
[2023-10-21 15:02] LABS: Hematocrit 44.1 % (36-46); Hemoglobin 14.9 g/dL (12.0-16.0); Mean Corpuscular HGB Conc 33.8 % (30-36); Mean Corpuscular Hemoglobin 30.9 PG (26-34); Mean Corpuscular Volume 91.3 fL (80-100); Platelet Count 328 X10^3/uL (150-400); Red Blood Cell Count 4.83 X10^6/uL (4.0-5.2); Red Cell Distribution Width 13.6 % (11.6-14.8); White Blood Cell Count 7.6 X10^3/uL (4.5-11.0)
[2023-10-21 15:27] LABS: Alanine Aminotransferase 32 IU/L (<35); Albumin 5.1 g/dL (3.5-5.0); Albumin Globulin Ratio 1.4 (1.0-2.8); Alkaline Phosphatase 113 U/L (38-126); Aspartate Aminotransferase 22 IU/L (14-36); BUN Creatinine Ratio 19.8 (6-22); Bilirubin Total 0.5 mg/dL (0.2-1.3); Blood Urea Nitrogen 16 mg/dL (7-17); Calcium 10.3 mg/dL (8.4-10.2); Carbon Dioxide 23 mmol/L (22-32); Chloride 105 mmol/L (98-107); Cholesterol 274 mg/dL (140-199); Estimated Glomerular Filt Rate > 60 mL/min (>60); Globulin 3.6 g/dL (1.7-4.1); Glucose 120 mg/dL (70-100); HDL Cholesterol 54 mg/dL (40-60); HEMOLYSIS < 15 (0-50); Potassium 4.6 mmol/L (3.4-5.1); Sodium 139 mmol/L (137-145); Total Protein 8.7 g/dL (6.3-8.2); Triglycerides 454 mg/dL (35-150)
[2023-10-21 15:57] LABS: TSH w/ Reflex to FT4 1.14 uIU/mL (0.47-4.68)
[2023-10-21 18:50] LABS: Follicle Stimulating Hormone 49.9 mIU/mL
== END ==
PROVIDERS: PCP Internal Medicine; Referring Provider Internal Medicine; Visit Provider Internal Medicine
DX: R00.0 Tachycardia, unspecified (principal); I50.9 Heart failure, unspecified; N95.1 Menopausal and female climacteric states
CPT/HCPCS: 36415; 80053; 80061; 83001; 84443; 85027

== ENCOUNTER → 2024-11-04 16:43 | Outpatient (CLI) | payer MEDICARE, MEDICAID, SELFPAY ==
[2019-08-05 11:01] VITALS: BMI 29.9
--- NOTE | 2024-11-04 16:47 | DI.RAD.S_ITS ---
PROCEDURE: XR HIP W PEL IF DONE LT 2V INDICATIONS: left hip pain TECHNIQUE: AP pelvis with lateral view(s) of the left hip(s). COMPARISON: [facility], , XR HIP W PEL IF DONE LT 2V, 07/08/2023, 16:16. FINDINGS: Bones: No fractures or dislocations. Pelvic ring appears intact. No suspicious bony lesions. Mild joint narrowing with periarticular osteophyte formation the left hip joint. Degenerative disc and facet disease involves the inferior lumbar spine. Soft tissues: The visualized bowel gas pattern is normal. No suspicious soft tissue calcifications. Right gavin pelvic surgical clips. IMPRESSION: Mild left hip joint degeneration. If pain persists, consider cross-sectional imaging such as CT or MRI. Dictated by: Grant HUMPHRIES Interpreted: Jaquelin Sanchez MD on 11/06/2024 at 12:10 Approved by: Jaquelin Sanchez M.D. on 11/08/2024 at 7:44
[2024-11-04 17:21] LABS: Hematocrit 33.6 % (36-46); Hemoglobin 11.4 g/dL (12.0-16.0); Mean Corpuscular Hemoglobin 31.1 PG (26-34); Mean Corpuscular Volume 91.6 fL (80-100); Platelet Count 262 X10^3/uL (150-400); Red Blood Cell Count 3.66 X10^6/uL (4.0-5.2); Red Cell Distribution Width 12.8 % (11.6-14.8); White Blood Cell Count 5.9 X10^3/uL (4.5-11.0)
[2024-11-04 17:43] LABS: Alanine Aminotransferase 33 IU/L (<35); Albumin 3.9 g/dL (3.5-5.0); Albumin Globulin Ratio 1.3 (1.0-2.8); Alkaline Phosphatase 74 U/L (38-126); Aspartate Aminotransferase 34 IU/L (14-36); BUN Creatinine Ratio 13.6 (6-22); Bilirubin Total 0.3 mg/dL (0.2-1.3); Blood Urea Nitrogen 11 mg/dL (7-17); Calcium 8.8 mg/dL (8.4-10.2); Carbon Dioxide 27 mmol/L (22-32); Chloride 110 mmol/L (98-107); Estimated Glomerular Filt Rate > 60 mL/min (>60); Glucose 85 mg/dL (70-99); HEMOLYSIS < 15 (0-50); Potassium 4.5 mmol/L (3.4-5.1); Sodium 142 mmol/L (137-145); Total Protein 6.9 g/dL (6.3-8.2)
== END ==
PROVIDERS: PCP Internal Medicine; Referring Provider Internal Medicine; Visit Provider Internal Medicine
DX: I50.9 Heart failure, unspecified (principal); M76.32 Iliotibial band syndrome, left leg; M16.12 Unilateral primary osteoarthritis, left hip
CPT/HCPCS: 36415; 73502; 80053; 85027

== ENCOUNTER → 2025-05-03 15:43 | Outpatient (CLI) | payer MEDICARE, MEDICAID, SELFPAY ==
[2019-08-05 11:01] VITALS: BMI 29.9
[2025-05-03 19:12] LABS: Vitamin B12 371 pg/mL (239-931)
== END ==
PROVIDERS: PCP Internal Medicine; Referring Provider Internal Medicine; Visit Provider Internal Medicine
DX: E53.8 Deficiency of other specified B group vitamins (principal)
CPT/HCPCS: 82607